=== PATIENT | male | born 1995 | race Caucasian/White ===

== ENCOUNTER 2021-04-30 06:03 | Emergency (ER) | payer SELFPAY ==
[2021-04-30 06:11] VITALS: BP 131/67; PULSE 82; RESP 18; TEMP 36.4; O2SAT 97; BMI 21.7
--- NOTE | 2021-04-30 06:16 | ED.EAR ---
HPI - Ear Problem General Chief complaint: Ear Stated complaint: right ear pain x1 day Time Seen by Provider: 04/30/21 06:12 Source: patient Mode of arrival: Ambulatory History of Present Illness HPI Narrative: Patient is a healthy 26-year-old male who presents with right ear pain. He says this started yesterday and progressively got worse throughout the night. He was unable to sleep due to pain. He has not had any fever or chills. No drainage. He previously had a ?double ear infection when he was in high school. He denies any nasal congestion or sore throat. Related Data Previous Rx's Medication Instructions Recorded amoxicillin 875 mg tablet 875 mg PO BID #14 tab 04/30/21 Allergies Allergy/AdvReac Type Severity Reaction Status Date / Time INGREDIENT: NO KNOWN - NO Allergy Unknown Uncoded 09/14/17 14:16 KNOWN DRUG ALLERGY Review of Systems Review of Systems Narrative: GENERAL: Denies chills, fatigue, malaise, fever, sweats, travel HEENT: See HPI RESPIRATORY: Denies dyspnea, cough, wheezing, hemoptysis, sputum. CARDIOVASCULAR: Denies chest pain, palpitations, orthopnea, edema GASTROINTESTINAL: Denies nausea, vomiting, abdominal pain, diarrhea, constipation, melena. : Denies dysuria, frequency, incontinence, hematuria, urinary retention, flank pain. MUSCULOSKELETAL: Denies weakness, joint pain, or bony pain SKIN: No rash, no erythema, no pruritus NEUROLOGIC: Denies weakness, dizziness, headache, numbness, change in speech, confusion PSYCHIATRIC: No concerning psychosocial issues. 12 point review of systems is negative except for those stated above and HPI Patient History Social History Smoking Status: Current every day smoker Smoking Status: Current every day smoker alcohol intake frequency: 0-2 drinks per day Substance Use Type: marijuana Exam Initial Vital Signs Initial Vital Signs: Vital Signs Temperature 97.6 F 04/30/21 06:11 Pulse Rate 82 04/30/21 06:11 Respiratory Rate 18 04/30/21 06:11 Blood Pressure 131/67 04/30/21 06:11 Pulse Oximetry 97 04/30/21 06:11 GENERAL: Well-appearing 26-year-old male EAR: Right-erythematous fluid behind membrane no drainage left-tympanic membrane visualized normal minimal cerumen impaction CARDIOVASCULAR: peripheral pulses in tact, cap refill <2 sec RESPIRATORY: No respiratory distress, speaks in full sentences without difficulty EXTREMITIES: Normal range of motion, no clubbing or edema. Neurovascularly intact NEUROLOGICAL: Cranial nerves II through XII grossly intact. Normal gait and speech. SKIN: Warm, dry, no petechiae, no rashes or lesions. Course Vital Signs Vital signs: Vital Signs - 8 hr 04/30/21 06:11 Temperature 97.6 F Pulse Rate 82 Respiratory Rate 18 Blood Pressure 131/67 Pulse Oximetry 97 Discharge Plan Departure Patient Disposition: Home Clinical Impression: Otitis media Qualifiers: Otitis media type: serous Laterality: right Recurrence: non-recurrent Instructions: Middle Ear Infection Activity Restrictions/Additional Instructions: *You have been diagnosed with right ear infection *What to do: Do not use Q-tips. *Continue to take medications as directed Motrin 600 mg every 6 hours if needed for [id number] Tylenol 1000 mg every 6 hours if needed for nodp-[id number] Amoxicillin 875mg twice a day for 7 days *Follow up with your primary care provider in 2-3 days or call [phone] *Return to ER if you should have [such as] [or] any new, worsening or concerning symptoms Prescriptions: New amoxicillin 875 mg tablet 875 mg PO BID Qty: 14 0RF
== END 2021-04-30 06:28 | disposition home or self-care (01) ==
PROVIDERS: Emergency Provider Emergency Medicine
DX: H65.91 Unspecified nonsuppurative otitis media, right ear (principal); F17.200 Nicotine dependence, unspecified, uncomplicated
CPT/HCPCS: 99281

== ENCOUNTER → 2021-06-20 09:19 | Outpatient (CLI) | payer OTHER, SELFPAY ==
[2021-06-20 10:22] LABS: COVID19 -Nasal RAPID Negative (Negative)
== END ==
PROVIDERS: Visit Provider Nurse Practitioner Family
DX: Z20.822 Contact with and (suspected) exposure to COVID-19 (principal); J02.9 Acute pharyngitis, unspecified
CPT/HCPCS: 87070; 87077; 87147; 87635

== ENCOUNTER → 2021-10-31 08:23 | Outpatient (CLI) | payer OTHER, SELFPAY ==
[2021-10-31 09:37] LABS: Add Manual Diff / Slide Review NO; Basophils Absolute Auto 0 /uL (0-100); Basophils Percent Auto 0.6 % (0-2); Eosinophils Absolute Auto 200 /uL (0-450); Eosinophils Percent Auto 2.7 % (2-4); Hemoglobin 14.4 g/dL (13.5-17.5); Lymphocytes Absolute Auto 2100 /uL (1100-4500); Lymphocytes Percent Auto 32.7 % (25-40); Mean Corpuscular HGB Conc 33.6 % (30-36); Mean Corpuscular Hemoglobin 28.4 PG (26-34); Mean Corpuscular Volume 84.4 fL (80-100); Monocytes Absolute Auto 500 /uL (0-900); Monocytes Percent Auto 8.1 % (3-14); Neutrophils Absolute Auto 3600 /uL (1500-7000); Neutrophils Percent Auto 55.9 % (50-75); Platelet Count 324 X10^3/uL (150-400); Red Blood Cell Count 5.09 X10^6/uL (4.5-5.9); White Blood Cell Count 6.5 X10^3/uL (4.5-11.0)
[2021-10-31 10:21] LABS: Alanine Aminotransferase 15 IU/L (<50); Albumin 4.6 g/dL (3.5-5.0); Albumin Globulin Ratio 1.8 (1.0-2.8); Alkaline Phosphatase 50 U/L (38-126); Aspartate Aminotransferase 21 IU/L (17-59); BUN Creatinine Ratio 18.1 (6-22); Bilirubin Total 0.5 mg/dL (0.2-1.3); Blood Urea Nitrogen 17 mg/dL (9-20); Calcium 9.4 mg/dL (8.4-10.2); Carbon Dioxide 24 mmol/L (22-32); Chloride 103 mmol/L (98-107); Cholesterol 170 mg/dL (140-199); Estimated Glomerular Filt Rate > 60 mL/min (>60); Globulin 2.5 g/dL (1.7-4.1); Glucose 94 mg/dL (70-100); HDL Cholesterol 54 mg/dL (40-60); HEMOLYSIS < 15 (0-50); LDL Cholesterol Calculated 97 mg/dL (<100); Potassium 4.8 mmol/L (3.4-5.1); Sodium 137 mmol/L (137-145); Total Protein 7.1 g/dL (6.3-8.2); Triglycerides 94 mg/dL (35-150)
[2021-10-31 10:51] LABS: TSH w/ Reflex to FT4 1.98 uIU/mL (0.47-4.68)
== END ==
PROVIDERS: PCP Family Medicine; Referring Provider Family Medicine; Visit Provider Family Medicine
DX: Z00.00 Encounter for general adult medical examination without abnormal findings (principal); Z83.3 Family history of diabetes mellitus
CPT/HCPCS: 36415; 80053; 80061; 84443; 85025

== ENCOUNTER → 2022-01-22 16:23 | Outpatient (CLI) | payer OTHER, SELFPAY ==
--- NOTE | 2022-01-22 16:27 | DI.RAD.S_ITS ---
PROCEDURE: XR HIP W PEL IF DONE LT 2V INDICATIONS: Left hip and bilateral knee pain. TECHNIQUE: 3 views of the bilateral hips were acquired. COMPARISON: None. FINDINGS: Bones: No fractures or dislocations. No suspicious bony lesions. The visualized pelvic ring appears intact. Soft tissues: No suspicious soft tissue calcifications or masses. IMPRESSION: Normal study. Dictated by: García Calderon M.D. on 01/23/2022 at 8:22 Approved by: García Calderon M.D. on 01/23/2022 at 8:23
--- NOTE | 2022-01-22 16:27 | DI.RAD.S_ITS ---
PROCEDURE: XR KNEE RT 3V INDICATIONS: Left hip and bilateral knee pain. TECHNIQUE: 3 views of the knee were acquired. COMPARISON: None. FINDINGS: Bones: No fractures or dislocations. No suspicious bony lesions. Soft tissues: No joint effusion. No suspicious soft tissue calcifications. IMPRESSION: No evidence acute bony abnormality of the right knee. If clinical suspicion and/or symptoms persist, further assessment with repeat plain films, or advanced imaging (e.g., CT, MRI, or bone scan) may be helpful for further assessment. Dictated by: Hunter Wan M.D. on 01/22/2022 at 20:57 Approved by: Hunter Wan M.D. on 01/22/2022 at 20:57
--- NOTE | 2022-01-22 16:27 | DI.RAD.S_ITS ---
PROCEDURE: XR KNEE LT 3V INDICATIONS: Left hip and bilateral knee pain. TECHNIQUE: 3 views of the knee were acquired. COMPARISON: None. FINDINGS: Bones: No fractures or dislocations. No suspicious bony lesions. Soft tissues: No joint effusion. No suspicious soft tissue calcifications. IMPRESSION: No evidence acute bony abnormality of the left knee. If clinical suspicion and/or symptoms persist, further assessment with repeat plain films, or advanced imaging (e.g., CT, MRI, or bone scan) may be helpful for further assessment. Dictated by: Hunter Wan M.D. on 01/22/2022 at 20:58 Approved by: Hunter Wan M.D. on 01/22/2022 at 20:58
== END ==
PROVIDERS: PCP Family Medicine; Referring Provider Family Medicine; Visit Provider Family Medicine
DX: M25.552 Pain in left hip (principal); M25.561 Pain in right knee; M25.562 Pain in left knee
CPT/HCPCS: 73502; 73562

== ENCOUNTER → 2022-01-25 09:37 | Outpatient (CLI) | payer OTHER, SELFPAY ==
[2022-01-25 11:00] LABS: Add Manual Diff / Slide Review NO; Basophils Absolute Auto 100 /uL (0-100); Basophils Percent Auto 0.7 % (0-2); Eosinophils Absolute Auto 100 /uL (0-450); Hemoglobin 14.3 g/dL (13.5-17.5); Lymphocytes Absolute Auto 1800 /uL (1100-4500); Lymphocytes Percent Auto 25.4 % (25-40); Mean Corpuscular HGB Conc 34.8 % (30-36); Mean Corpuscular Hemoglobin 29.1 PG (26-34); Mean Corpuscular Volume 83.5 fL (80-100); Monocytes Absolute Auto 500 /uL (0-900); Monocytes Percent Auto 6.9 % (3-14); Neutrophils Absolute Auto 4600 /uL (1500-7000); Platelet Count 286 X10^3/uL (150-400); Red Blood Cell Count 4.91 X10^6/uL (4.5-5.9); Red Cell Distribution Width 13.3 % (11.6-14.8); White Blood Cell Count 7.1 X10^3/uL (4.5-11.0)
[2022-01-25 12:04] LABS: Alanine Aminotransferase 19 IU/L (<50); Albumin 4.8 g/dL (3.5-5.0); Albumin Globulin Ratio 1.7 (1.0-2.8); Alkaline Phosphatase 49 U/L (38-126); Aspartate Aminotransferase 23 IU/L (17-59); BUN Creatinine Ratio 26.3 (6-22); Bilirubin Total 0.3 mg/dL (0.2-1.3); Blood Urea Nitrogen 25 mg/dL (9-20); Calcium 9.5 mg/dL (8.4-10.2); Carbon Dioxide 23 mmol/L (22-32); Chloride 104 mmol/L (98-107); Estimated Glomerular Filt Rate > 60 mL/min (>60); Globulin 2.8 g/dL (1.7-4.1); Glucose 95 mg/dL (70-100); HEMOLYSIS < 15 (0-50); Lipase 55 U/L (23-300); Potassium 4.4 mmol/L (3.4-5.1); Sodium 141 mmol/L (137-145); Total Protein 7.6 g/dL (6.3-8.2)
[2022-01-25 12:27] LABS: TSH w/ Reflex to FT4 0.59 uIU/mL (0.47-4.68)
[2022-01-28 11:16] LABS: Interpretation Negative (Negative)
== END ==
PROVIDERS: PCP Family Medicine; Referring Provider Family Medicine; Visit Provider Family Medicine
DX: M25.552 Pain in left hip (principal); M25.561 Pain in right knee; M25.562 Pain in left knee; R11.0 Nausea; Z83.3 Family history of diabetes mellitus; R10.9 Unspecified abdominal pain
CPT/HCPCS: 36415; 80053; 83013; 83690; 84443; 85025